=== PATIENT | female | born 1985 | race Caucasian/White ===

== ENCOUNTER 2019-02-03 19:33 | Emergency (ER) | payer OTHER ==
[2019-02-03 20:13] VITALS: RESP 18
[2019-02-03] MEDS ORDERED: diphenhydrAMINE 50 MG/ML 1 ML VIAL IVP STA (20:47)
[2019-02-03] MEDS ORDERED: DEXAMETHASONE SOD PHOSPHATE 10 MG/ML 1 ML VIAL IV STA (20:47)
[2019-02-03] MEDS ORDERED: SODIUM CHLORIDE 0.9% 1,000 ML IV STA (20:47)
[2019-02-03] MEDS ORDERED: ONDANSETRON 4 MG/2 ML VIAL IVP STA (20:47)
--- NOTE | 2019-02-03 20:53 | ED ---
General Adult HPI - General Source: patient Mode of arrival: ambulatory Limitations: no limitations <ArielaKathye D - Last Filed: 02/03/19 21:28> <David Flynnssica P - Last Filed: 02/03/19 23:11> - General Chief complaint: Headache Stated complaint: Post seizure headache Time Seen by Provider: 02/03/19 20:37 - History of Present Illness Initial comments: Dictation was produced using [employer] dictation software. please excuse any grammatical, word or spelling errors. Chief Complaint: 33-year-old female with past medical history migraines presents with worsening headache. History of Present Illness: She is a 33-year-old female presents with headache. Patient states that her symptoms began approximately 8-10 days ago. She was at her [facility] when she had episode of syncope. She does not call the event exactly however she was told she had a seizure. They called EMS for her however she refuses transfer to emergency department. 4 days later she went to her primary care physician and was ordered for EEG, MRI of the brain and neurology consultation. 3 or 4 days after that she felt like her pain was getting worse leading up to today where she felt like she had to come to the emergency department. Patient describes the pain as well cranial. She states that it feels like her head to about to pop. Denies any throbbing nature. States his headache is different from her usual migraine headaches. She states that it's worse when she lies flat and better when she sits up. He has any fever, chills or night sweats. Mother was at bedside reports that patient has had difficulty with cognition that is intermittent. She has a scheduled MRI and EEG in 2-3 days and a consultation appointment with Dr. Beatty later this week. Patient denies any neuro deficits. Denies any vision changes. She denies any chance of The ROS documented in this emergency department record has been reviewed and confirmed by me. Those systems with pertinent positive or negative responses have been documented in the HPI. All other systems are other negative and/or noncontributory. PHYSICAL EXAM: General Impression: Alert and oriented x3, acute distress secondary to pain HEENT: Normocephalic atraumatic, extra-ocular movements intact, pupils equal and reactive to light bilaterally, mucous membranes moist. Cardiovascular: Heart regular rate and rhythm, S1&S2 audible, no murmurs, rubs or gallops Chest: Lungs clear to auscultation bilaterally, no rhonchi, no wheeze, no rales Abdomen: Bowel sounds present, abdomen soft, non-tender, non-distended, no organomegaly Musculoskeletal: Pulses present and equal in all extremities, no peripheral edema Motor: no focal deficits noted Neurological: CN II-XII grossly intact, no focal motor or sensory deficits noted, no clonus, no hyperreflexia Skin: Intact with no visualized rashes Psych: Normal affect and mood ED course: 33yo female presents with chief complaint of headache. Vital signs upon arrival are within acceptable limits. Patient is ill-appearing. No focal neurologic deficits noted on neurologic exam. Patient has had good follow-up. She denies thunderclap headache however she does reported severe and worse with lying flat and in the morning. there Some consideration that patient's headache secondary to intracranial mass hands ordered CT. High on patient's differential includes intracranial mass and complex migraine. Patient given headache cocktail. Patient care senna to Dr. Flynn for follow-up of labs, CT and further recommendations. (Nathan Titus) - Related Data Home Medications Medication Instructions Recorded Confirmed Ibuprofen [Motrin Ib] 200 - 800 mg PO Q8H PRN 02/03/19 02/03/19 Magnesium 200 mg PO DAILY 02/03/19 02/03/19 Allergies Allergy/AdvReac Type Severity Reaction Status Date / Time acetaminophen [From Fioricet] Allergy Unknown Verified 02/03/19 20:35 aspirin [From Fiorinal] Allergy Unknown Verified 02/03/19 20:35 butalbital [From Fiorinal] Allergy Unknown Verified 02/03/19 20:35 caffeine [From Fiorinal] Allergy Unknown Verified 02/03/19 20:35 clarithromycin [From Biaxin] Allergy Rash/Hives Verified 02/03/19 20:35 sumatriptan [From Imitrex] Allergy Anaphylaxis Verified 02/03/19 20:35 sumatriptan succinate Allergy Anaphylaxis Verified 02/03/19 20:35 [From Imitrex] Review of Systems ROS Other: All systems not noted in ROS Statement are negative. <Nathan Titus - Last Filed: 02/03/19 21:28> ROS Other: All systems not noted in ROS Statement are negative. <Gill Flynn P - Last Filed: 02/03/19 23:11> ROS Statement: Those systems with pertinent positive or pertinent negative responses have been documented in the HPI. Past Medical History Past Medical History: Seizure Disorder Additional Past Medical History / Comment(s): migraines History of Any Multi-Drug Resistant Organisms: None Reported Past Surgical History: Adenoidectomy, Tonsillectomy Additional Past Surgical History / Comment(s): D&C for miscarriage Past Psychological History: Anxiety Smoking Status: Current every day smoker Past Alcohol Use History: None Reported Past Drug Use History: None Reported <Nathan Titus D - Last Filed: 02/03/19 21:28> General Exam Limitations: no limitations <Nathan Titus - Last Filed: 02/03/19 21:28> Course Vital Signs 02/03/19 02/03/19 20:10 22:17 Temperature 98.3 F Pulse Rate 95 69 Respiratory 18 18 Rate Blood Pressure 126/91 129/89 O2 Sat by Pulse 98 100 Oximetry Medical Decision Making - Lab Data Lab Results 02/03/19 Range/Units 21:11 Urine HCG, Qual Not Detected (Not Detectd) Disposition <Nathan Titus D - Last Filed: 02/03/19 21:28> Is patient prescribed a controlled substance at d/c from ED?: No <Gill Flynn P - Last Filed: 02/03/19 23:11> Clinical Impression: Headache Disposition: HOME SELF-CARE Condition: Stable Instructions (If sedation given, give patient instructions): Acute Headache (ED) Referrals: Zak Feng DO [Primary Care Provider] - 1-2 days
--- NOTE | 2019-02-03 22:37 | CT ---
EXAM: CT Head Without Intravenous Contrast CLINICAL HISTORY: ITS.REASON CT Reason: Pain TECHNIQUE: Axial computed tomography images of the head/brain without intravenous contrast. CTDI is 49.1 mGy and DLP is 1105.4 mGy-cm. This CT exam was performed using one or more of the following dose reduction techniques: automated exposure control, adjustment of the mA and/or kV according to patient size, and/or use of iterative reconstruction technique. COMPARISON: No relevant prior studies available. FINDINGS: Brain: No definite intracranial hemorrhage. Right cerebellar hypodensities, presumably artifact. No acute cortical infarct. No mass effect or midline shift. Ventricles: Unremarkable. Bones/joints: No acute fracture. Soft tissues: Unremarkable. Sinuses: Unremarkable as visualized. Mastoid air cells: Unremarkable as visualized. IMPRESSION: No acute intracranial process.
[2019-02-03 23:37] VITALS: BP 119/81; PULSE 88; TEMP 98.2
== END 2019-02-03 23:36 | disposition home or self-care (01) ==
LOC: EC 19:33
DX: R51 Headache (principal); R55 Syncope and collapse; F17.200 Nicotine dependence, unspecified, uncomplicated; Z79.899 Other long term (current) drug therapy; Z88.6 Allergy status to analgesic agent; Z88.8 Allergy status to other drugs, medicaments and biological substances; Z88.1 Allergy status to other antibiotic agents; Z91.018 Allergy to other foods
CPT/HCPCS: 81025; 70450; 99284; 96374; 96375 ×2; 96361; J1200; J1100; J2405

== ENCOUNTER → 2019-02-04 | Outpatient (CLI) | payer OTHER ==
--- NOTE | 2019-02-04 13:25 | MR ---
EXAMINATION TYPE: MR brain wo/w con DATE OF EXAM: 02/04/2019 COMPARISON: CT brain from yesterday. HISTORY: Seizure TECHNIQUE: Multiplanar, multisequence images of the brain and brainstem is performed without and with IV contras t, utilizing 5 mL intravenous Gadavist . FINDINGS: Diffusion weighted images demonstrate no evidence of a recent infarct or other diffusion ab normality. There is no worrisome extra-axial fluid collection . The ventricular system and cisterna l spaces are normal in size and appearance. The brain volume is age appropriate. There are some scat tered foci T2 hyperintensity identified throughout the white matter bilaterally. Approximately 10-15 scattered lesions are seen, for reference 6-8 small lesions are noted axial image 17 in the bilateral frontal lobes. One of larger lesions is 4 mm subcortical focus posterior right frontal lobe axial im age 20. T2 coronal weighted images show hippocampal gyri to appear symmetric and felt within normal l imits. No suspicious edema or enhancement is noted. Midline structures demonstrate normal morphology. The craniocervical junction appears within normal limits. Post contrast images demonstrate no abnormal enhancement. The dural venous sinuses appear pa tent. The visualized sinuses are clear and the globes are intact. IMPRESSION: Mild nonspecific white matter changes of uncertain etiology otherwise unremarkable exam. No obvious finding seen to account for patient's symptoms of new onset seizures.
== END | disposition home or self-care (01) ==
LOC: RADMRIMAIN 12:09
PROVIDERS: ATTEND Family Medicine
DX: R90.89 Other abnormal findings on diagnostic imaging of central nervous system (principal); R56.9 Unspecified convulsions
CPT/HCPCS: 70553; A9585

== ENCOUNTER → 2019-02-05 | Outpatient (CLI) | payer OTHER ==
--- NOTE | 2019-02-09 09:20 | EEG ---
ELECTROENCEPHALOGRAM REPORT DATE OF PROCEDURE: 02/05/2019 ELECTROENCEPHALOGRAM (EEG) REPORT: TECHNIQUE: A routine 18 channel EEG was performed with video using the 10/20 international placement system. HISTORY: Seizure 3 weeks ago. Patient was sitting in a chair at a salon when shoulder started shaking and head fell forward. CURRENT MEDICATIONS: Magnesium. STUDY DURATION: 27 minutes. FINDINGS: BACKGROUND: The background activity consisted of 9-10 hertz rhythmic waveforms symmetrically seen over both posterior quadrants. ACTIVATION: HYPERVENTILATION: Induced physiological slowing. PHOTIC STIMULATION: Symmetric driving seen. SLEEP: Stages 1 and 2 sleep noted. ABNORMALITIES: On one occasion during this recording, a generalized spike discharge was seen. This was not definitively epileptiform in nature. Noting that this was a single discharge. IMPRESSION: Potentially abnormal EEG. No clinical or electrographic seizures were recorded. On 1 single occasion, generalized spike morphology discharge was seen, a definitive conclusion regarding the etiology of this cannot be determined as it only occurred once during the recording. If clinical concern remains for a seizure disorder, would suggest a repeat study. Please note that 1 channel of this EEG was dedicated to EKG. It demonstrated a sinus rhythm. Stages 1 and 2 sleep were recorded. MMODL / IJN: [id number] /
== END | disposition home or self-care (01) ==
LOC: NEUROMAIN 09:53
PROVIDERS: ATTEND Family Medicine
DX: R94.01 Abnormal electroencephalogram [EEG] (principal); R56.9 Unspecified convulsions
CPT/HCPCS: 95816

== ENCOUNTER → 2019-02-16 | Outpatient (CLI) | payer OTHER | END | disposition home or self-care (01) | LOC: LABWHC1 13:14 | PROVIDERS: ATTEND Psychiatry & Neurology Neurology | DX: Z53.9 Procedure and treatment not carried out, unspecified reason (principal) ==

== ENCOUNTER → 2019-09-09 | Outpatient (CLI) | payer OTHER ==
[2019-09-09 10:08] LABS: HCT 39.4 % (34.0-46.0); HGB 12.9 gm/dL (11.4-16.0); MCH 30.2 pg (25.0-35.0); MCHC 32.8 g/dL (31.0-37.0); MCV 92.1 fL (80.0-100.0); Mean Platelet Volume 6.5; Platelet Count 272 k/uL (150-450); RBC 4.28 m/uL (3.80-5.40); RDW 13.2 % (11.5-15.5); WBC 9.6 k/uL (3.8-10.6)
[2019-09-09 17:07] LABS: Hepatitis B Surface Antigen Non-Reactive (Non-Reactive)
== END | disposition home or self-care (01) ==
LOC: LABWHC1 09:40
PROVIDERS: ATTEND Nurse Practitioner Family
DX: Z34.80 Encounter for supervision of other normal pregnancy, unspecified trimester (principal); Z51.81 Encounter for therapeutic drug level monitoring
CPT/HCPCS: 36415; 80177; 82565; 82947; 85027; 86762; 86780; 86850; 86900; 86901; 87340

== ENCOUNTER → 2019-09-15 | Outpatient (CLI) | payer OTHER ==
--- NOTE | 2019-09-15 15:54 | US ---
EXAMINATION TYPE: Transabdominal DATE OF EXAM: 09/15/2019 9:17 AM COMPARISON: NONE CLINICAL HISTORY: Z36 Confirm Dates. Confirm dates. Unknown LMP EXAM PERFORMED: Transabdominal (TA) EXAM MEASUREMENTS: GESTATIONAL AGE / DATING Dates by LMP: LMP unknown Dates by Current Scan for: ( 9 weeks/5 days) EDC: 04/14/2020 MATERNAL ANATOMY Uterus: 11.7 x 7.3 x 5.6 cm Right Ovary: 2.8 x 2.0 x 1.8 cm Left Ovary: 2.5 x 1.4 x 1.7 cm Post CDS / Adnexa: no free fluid Presence of free fluid: no Presence of corpus luteal cyst: no Presence of subchorionic bleed: anechoic lesion adjacent to GS in VETO = 2.6 x 2.7 x 0.5 cm GESTATION / SURVEY CRL: 2.9 cm (9 weeks/5 days) MSD: seen, not measured Yolk Sac (normal less than 6mm): 4.0 mm Heart Rate: 169 bpm Rhythm: Normal IUP: Viable IUP Date of LMP: Unknown, Beta HcG (if available): Not available at this time Single live IUP measuring 9 weeks 5 days IMPRESSION: 1. Single intrauterine gestation estimated at 9 weeks 5 days gestation based on the crown-rump length . Cardiac activity measures 169 bpm. 2. Subchorionic hemorrhage measuring 2.6 x 2.7 x 0.5 cm.
== END | disposition home or self-care (01) ==
LOC: RADUSWWP 08:48
PROVIDERS: ATTEND Obstetrics & Gynecology
DX: O20.8 Other hemorrhage in early pregnancy (principal); Z3A.09 9 weeks gestation of pregnancy
CPT/HCPCS: 76801

== ENCOUNTER → 2020-01-14 | Outpatient (CLI) | payer OTHER ==
[2020-01-14 11:15] LABS: HCT 33.7 % (34.0-46.0); MCH 29.8 pg (25.0-35.0); MCHC 32.7 g/dL (31.0-37.0); MCV 91.1 fL (80.0-100.0); Mean Platelet Volume 7.2; Platelet Count 245 k/uL (150-450); RBC 3.71 m/uL (3.80-5.40); RDW 13.2 % (11.5-15.5); WBC 11.4 k/uL (3.8-10.6)
== END | disposition home or self-care (01) ==
LOC: LABWHC1 09:29
PROVIDERS: ATTEND Obstetrics & Gynecology
DX: Z34.82 Encounter for supervision of other normal pregnancy, second trimester (principal); Z3A.00 Weeks of gestation of pregnancy not specified
CPT/HCPCS: 36415; 82950; 85027

== ENCOUNTER 2020-03-27 06:00 | Inpatient (IN) | payer OTHER ==
[2020-03-24 12:57] VITALS: BMI 29.2
[2020-03-27] MEDS ORDERED: LACTATED RINGERS 1,000 ML IV ONE (06:53)
[2020-03-27] MEDS ORDERED: CITRIC ACID-SODIUM CITRATE 15 ML CUP PO ONE (06:53)
[2020-03-27 07:07] LABS: Basophils % (A) 1 %; Eosinophils % (A) 0 %; HCT 32.2 % (34.0-46.0); HGB 10.2 gm/dL (11.4-16.0); Hypochromasia Moderate; Lymphocytes % (A) 23 %; MCH 25.7 pg (25.0-35.0); MCHC 31.5 g/dL (31.0-37.0); MCV 81.6 fL (80.0-100.0); Mean Platelet Volume 8.2; Monocytes # (A) 0.4 k/uL (0-1.0); Monocytes % (A) 5 %; Neutrophils % (A) 68 %; Platelet Count 234 k/uL (150-450); Poikilocytosis Slight; RBC 3.95 m/uL (3.80-5.40); RDW 14.4 % (11.5-15.5); WBC 8.8 k/uL (3.8-10.6)
[2020-03-27] MEDS ORDERED: KETOROLAC 30 MG/ML 1 ML VIAL ONE (08:04)
[2020-03-27] MEDS ORDERED: OXYTOCIN 10 UNIT/ML 1 ML VIAL ONE (08:04)
[2020-03-27] MEDS ORDERED: fentaNYL (PF) 50 MCG/ML 2 ML AMP ONE (08:04)
[2020-03-27] MEDS ORDERED: NALBUPHINE 10 MG/ML (1 ML AMP) ONE (08:04)
[2020-03-27] MEDS ORDERED: ONDANSETRON 4 MG/2 ML VIAL ONE (08:04)
[2020-03-27] MEDS ORDERED: MORPHINE SULFATE (PF) 0.3 MG/0.3 ML SYR ONE (08:04)
[2020-03-27] MEDS ORDERED: SIMETHICONE 80 MG CHEWABLE PO PRN (08:49)
[2020-03-27] MEDS ORDERED: diphenhydrAMINE 50 MG/ML 1 ML VIAL IVP PRN (08:49)
[2020-03-27] MEDS ORDERED: ONDANSETRON 4 MG/2 ML VIAL IVP PRN (08:49)
[2020-03-27] MEDS ORDERED: ZOLPIDEM 5 MG TAB PO PRN (08:49)
[2020-03-27] MEDS ORDERED: diphenhydrAMINE 50 MG CAP PO PRN (08:49)
[2020-03-27] MEDS ORDERED: NALOXONE 0.4 MG/ML 1 ML VIAL IV PRN (08:49)
[2020-03-27] MEDS ORDERED: ACETAMINOPHEN TAB 325 MG TAB PO PRN (08:49)
[2020-03-27] MEDS ORDERED: LANOLIN CREAM 5 GM TUBE TOPICAL PRN (08:49)
[2020-03-27] MEDS ORDERED: METOCLOPRAMIDE 5 MG/ML 2 ML VIAL IVP PRN (08:49)
[2020-03-27] MEDS ORDERED: diphenhydrAMINE 25 MG CAP PO PRN (08:49)
[2020-03-27] MEDS ORDERED: OXYTOCIN 20 UNITS/1000 ML NS 1,000 ML IV SCH (09:00)
[2020-03-27] MEDS: LACTATED RINGERS 1,000 ML IV SCH ×5 (12:10→19:34)
[2020-03-27] MEDS: KETOROLAC 30 MG/ML 1 ML VIAL IVP SCH ×3 (12:14→22:58)
[2020-03-27] MEDS ORDERED: MEASLES-MUMPS-RUBELLA VACC/PF 12,500 UNIT/0.5 ML VIAL SQ ONE (12:23)
--- NOTE | 2020-03-27 12:57 | P.HPOB ---
History of Present Illness H&P Date: 03/27/20 Chief Complaint: repeat with tubal ligation 34 year old presents at 37 weeks 3 days for repeat low transverse with tubal ligation. 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 Review of Systems All systems: negative Constitutional: Denies chills, Denies fever Eyes: denies blurred vision, denies pain Ears, nose, mouth and throat: Denies headache, Denies sore throat Cardiovascular: Denies chest pain, Denies shortness of breath Respiratory: Denies cough Gastrointestinal: Denies abdominal pain, Denies diarrhea, Denies nausea, Denies vomiting Genitourinary: Denies dysuria, Denies hematuria Musculoskeletal: Denies myalgias Integumentary: Denies pruritus, Denies rash Neurological: Denies numbness, Denies weakness Psychiatric: Denies anxiety, Denies depression Endocrine: Denies fatigue, Denies weight change Past Medical History Past Medical History: Neurologic Disorder, Seizure Disorder Additional Past Medical History / Comment(s): migraines. LAST SEIZURE 07/20. 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 Obstetric history: She has had 2 previous vaginal deliveries, 32 weeks and 39 weeks, emergency for transverse position of a 27 week or when she went into labor. This is her fourth . She's been seeing me for care since the first trimester and comanage by maternal medicine. 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 Blood type is O+, infant appears negative, rubella indeterminate, hepatitis B negative. History of Any Multi-Drug Resistant Organisms: None Reported Past Surgical History: Adenoidectomy, Section, Tonsillectomy Additional Past Surgical History / Comment(s): D&C for miscarriage Past Anesthesia/Blood Transfusion Reactions: No Reported Reaction Past Psychological History: Anxiety Smoking Status: Former smoker Past Alcohol Use History: None Reported Additional Past Alcohol Use History / Comment(s): QUIT SMOKING 06/2019 Past Drug Use History: None Reported - Past Family History Mother Family Medical History: No Reported History Medications and Allergies Home Medications Medication Instructions Recorded Confirmed Type Pnv No.95/Ferrous Fum/Folic AC 1 each PO DAILY 05/01/20 05/01/20 History [ Multivitamin Tablet] Allergies Allergy/AdvReac Type Severity Reaction Status Date / Time acetaminophen [From Fioricet] Allergy Rash/Hives Verified 03/24/20 12:42 aspirin [From Fiorinal] Allergy Rash/Hives Verified 03/24/20 12:42 butalbital [From Fiorinal] Allergy Rash/Hives Verified 03/24/20 12:42 caffeine [From Fiorinal] Allergy Rash/Hives Verified 03/24/20 12:42 clarithromycin [From Biaxin] Allergy Rash/Hives Verified 02/03/19 20:35 sumatriptan [From Imitrex] Allergy Anaphylaxis Verified 02/03/19 20:35 sumatriptan succinate Allergy Anaphylaxis Verified 02/03/19 20:35 [From Imitrex] Exam Osteopathic Statement: *. No significant issues noted on an osteopathic structural exam other than those noted in the History and Physical/Consult. Vital Signs Temp Pulse Resp BP Pulse Ox 03/27/20 11:24 71 17 129/74 98 03/27/20 10:56 96.7 F L 67 18 107/60 98 03/27/20 10:21 97 17 121/71 97 03/27/20 09:56 96.4 F L 75 18 113/62 98 03/27/20 09:41 72 17 116/76 97 03/27/20 09:26 76 17 112/71 97 03/27/20 09:11 74 18 107/56 03/27/20 08:56 96.4 F L 75 18 95/54 97 03/27/20 06:56 97.0 F L 96 18 127/81 98 Intake and Output 03/26/20 03/27/20 03/27/20 22:59 06:59 14:59 Output Total 50 Balance -50 Output: Urine 50 Other: Voiding Method Indwelling Catheter Weight 74.843 kg Heart: Regular rate and rhythm Lungs: Clear to auscultation bilaterally Abdomen: Soft, nontender Extremities: Negative Homans sign Results Result Diagrams: 03/27/20 06:30 Abnormal Lab Results - Last 24 Hours (Table) 03/27/20 Range/Units 06:30 Hgb 10.2 L (11.4-16.0) gm/dL Hct 32.2 L (34.0-46.0) % Assessment and Plan (1) Varices of umbilical cord Current Visit: Yes Status: Acute Code(s): XLK1287 - SNOMED Code(s): 083597895 (2) Previous section Current Visit: Yes Status: Acute Code(s): Z98.891 - HISTORY OF UTERINE SCAR FROM PREVIOUS SURGERY SNOMED Code(s): 572868777 (3) Family planning Current Visit: Yes Status: Acute Code(s): Z30.09 - ENCOUNTER FOR OT GENERAL CNSL AND ADVICE ON CONTRACEPTION SNOMED Code(s): 309931927 Plan: 1. Repeat low transverse with tubal ligation
--- NOTE | 2020-03-27 13:02 | P.OP ---
Date of Procedure: 03/27/20 Preoperative Diagnosis: 1. Umbilical cord varix 2. Previous section 3. Family planning Postoperative Diagnosis: 1. Umbilical cord varix 2. Previous section 3. Family planning Procedure(s) Performed: Repeat low transverse with tubal ligation Anesthesia: spinal Surgeon: Katie Henao Scallop Shucker #1: Ashley Graham Estimated Blood Loss (ml): 408 IV fluids (ml): 750 Urine output (ml): 200 Pathology: other (Placenta, bilateral fallopian tubal segments) Condition: stable Disposition: floor Operative Findings: Normal uterus, tubes, ovaries. Viable female Apgars 9, 9, weight 6 lbs. 14 oz. Description of Procedure: Patient was taken to the operating room where spinal anesthesia was found be adequate. She was prepped and draped in normal sterile fashion in dorsal supine position with a leftward tilt. Pfannenstiel skin incision was made the scalpel and carried through to the underlying layer of fascia with the scalpel. Fascia was incised in midline and carried bilaterally with the Cummings scissors. The superior aspect of the fascial incision was grasped with Luverne clamps elevated and the underlying rectus muscles dissected off with the Cummings's. Attention was then turned to inferior aspect of same incision which in a similar fashion was grasped tented up and the underlying rectus muscles dissected off with the Cummings's. The rectus muscles were the midline and the peritoneum was identified tented up and entered sharply with the scalpel. The incision was extended superiorly and inferiorly with good visualization of the bladder. The bladder blade was inserted and the vesicouterine peritoneum was incised the Metzenbaums then carried bilaterally and bladder flap created digitally. A low transverse incision was then made on the uterus with the scalpel. This was carried bilaterally and digital manner. Infant's head delivered atraumatically, nose and mouth bulb suctioned, cord clamped and cut, infant handed off to [facility] nurses. Apgars 9,9, weight 6 lbs. 14 oz. cord blood collection was done following the instructions I came with the kit. Placenta delivered manually, intact with three-vessel cord. The uterus is exteriorized and cleared of all clots and debris. The uterine incision was closed with 0 Vicryl in a running locked fashion. Second layer of the same sutures used in imbricating fashion to obtain excellent hemostasis. Bladder flap was then reapproximated using 2-0 Vicryl in a running fashion. Both ovaries and tubes appeared normal. The left fallopian tube was grasped with a hemostat and a window was made in the mesosalpinx with the Bovie. The left fallopian tube was doubly ligated and a segment was removed. The pedicles were cauterized with the Bovie. The right fallopian tube was grasped with a hemostat and a window was made in the mesosalpinx with the Bovie. The right fallopian tube was doubly ligated and a segment was removed. The pedicles were cauterized with the Bovie. The uterus was placed back into the abdomen. The peritoneum was reapproximated using 2-0 Vicryl in a running fashion. The muscles were reapproximated using 2-0 Vicryl in interrupted fashion. The fascia was reapproximated using 0 Vicryl in a running fashion. The subcutaneous tissues closed with 3-0 Vicryl running fashion. The skin was closed oniel. Patient tolerated the procedure well, sponge and instrument counts were correct times 2 and she was taken to the recovery room in stable condition.
[2020-03-27] MEDS: diphenhydrAMINE 50 MG/ML 1 ML VIAL IVP PRN ×2 (14:40→22:57)
[2020-03-27] MEDS: SENNOSIDES-DOCUSATE SODIUM 1 EACH TAB PO SCH (19:34)
[2020-03-28 05:26] LABS: Basophils % (A) 0 %; Eosinophils % (A) 0 %; HCT 27.8 % (34.0-46.0); HGB 8.8 gm/dL (11.4-16.0); Hypochromasia Marked; Lymphocytes # (A) 2.4 k/uL (1.0-4.8); Lymphocytes % (A) 22 %; MCH 26.6 pg (25.0-35.0); MCHC 31.7 g/dL (31.0-37.0); MCV 83.9 fL (80.0-100.0); Mean Platelet Volume 8.2; Monocytes # (A) 0.6 k/uL (0-1.0); Monocytes % (A) 5 %; Neutrophils # (A) 7.7 k/uL (1.3-7.7); Neutrophils % (A) 70 %; Platelet Count 193 k/uL (150-450); Poikilocytosis Slight; RBC 3.31 m/uL (3.80-5.40); RDW 14.1 % (11.5-15.5)
[2020-03-28] MEDS: KETOROLAC 30 MG/ML 1 ML VIAL IVP SCH ×2 (05:34→20:40)
--- NOTE | 2020-03-28 07:26 | P.PNOBGPC ---
Subjective - Subjective Principal diagnosis: S/P RLTCS with TL POD #1 Interval history: Patient seen and examined. Denies nausea, vomiting, chest pain, shortness of breath or calf pain. Patient reports: Reports appetite normal, Reports voiding normally, Reports pain well controlled, Reports ambulating normally : doing well Objective - Vital Signs Latest vital signs: Vital Signs Temp Pulse Resp BP Pulse Ox 03/28/20 03:21 98.3 F 92 18 124/76 96 03/27/20 23:11 98 F 86 18 110/72 98 03/27/20 20:00 98.5 F 85 18 109/67 98 03/27/20 16:00 98.1 F 83 18 124/70 97 03/27/20 11:24 71 17 129/74 98 03/27/20 10:56 96.7 F L 67 18 107/60 98 03/27/20 10:21 97 17 121/71 97 03/27/20 09:56 96.4 F L 75 18 113/62 98 03/27/20 09:41 72 17 116/76 97 03/27/20 09:26 76 17 112/71 97 03/27/20 09:11 74 18 107/56 03/27/20 08:56 96.4 F L 75 18 95/54 97 Intake and Output 03/27/20 03/28/20 03/28/20 22:59 06:59 14:59 Output Total 600 Balance -600 Output: Urine 600 Uretheral (Zavala) 300 Other: Voiding Method Indwelling Catheter # Voids 1 2 - Exam Lungs: bilateral: normal Chest: Normal S1, Normal S2 Extremities: Present: normal Abdomen: Present: normal appearance, soft. Absent: distention, tenderness Incision: Present: normal, dry, intact Uterus: Present: normal, firm - Labs Labs: Abnormal Lab Results - Last 24 Hours (Table) 03/28/20 Range/Units 05:07 WBC 11.0 H (3.8-10.6) k/uL RBC 3.31 L (3.80-5.40) m/uL Hgb 8.8 L (11.4-16.0) gm/dL Hct 27.8 L (34.0-46.0) % Assessment and Plan (1) Varices of umbilical cord Current Visit: Yes Status: Resolved Code(s): [id number] - SNOMED Code(s): 303595197 (2) Previous section Current Visit: Yes Status: Resolved Code(s): Z98.891 - HISTORY OF UTERINE SCAR FROM PREVIOUS SURGERY SNOMED Code(s): 432396841 (3) Family planning Current Visit: Yes Status: Resolved Code(s): Z30.09 - ENCOUNTER FOR OT GENERAL CNSL AND ADVICE ON CONTRACEPTION SNOMED Code(s): 695499297 (4) Status post repeat low transverse section Current Visit: Yes Status: Acute Code(s): Z98.891 - HISTORY OF UTERINE SCAR FROM PREVIOUS SURGERY SNOMED Code(s): 494255892 (5) Status post tubal ligation at time of delivery, current hosp Current Visit: Yes Status: Acute Code(s): O80 - ENCOUNTER FOR FULL-TERM UNCOMPLICATED DELIVERY; Z30.2 - ENCOUNTER FOR STERILIZATION SNOMED Code(s): 135798627 Plan: 1. increase ambulation 2. advance diet
[2020-03-28] MEDS: SENNOSIDES-DOCUSATE SODIUM 1 EACH TAB PO SCH ×2 (08:12→20:39)
[2020-03-28] MEDS: IBUPROFEN 600 MG TAB PO PRN ×2 (12:40→19:20)
[2020-03-28 16:04] VITALS: RESP 16
--- NOTE | 2020-03-28 17:16 | P.PN ---
Progress Note - Text Progress Note Date: 03/28/20 Postoperative day 1 status post section under spinal anesthesia, and i ntrathecal morphine given for postoperative analgesia, patient doing well, there is no anesthesia related complications, Patient had no headache, vital signs stable , Assessment and plan= postop day 1 status post , doing well there is no anesthesia related complication.
[2020-03-28] MEDS: HYDROcodone/APAP 7.5-325MG 1 EACH TAB PO PRN (22:43)
[2020-03-29] MEDS: IBUPROFEN 600 MG TAB PO PRN ×2 (01:31→07:37)
[2020-03-29] MEDS: HYDROcodone/APAP 7.5-325MG 1 EACH TAB PO PRN ×2 (04:43→10:12)
--- NOTE | 2020-03-29 07:05 | P.DS ---
Providers Date of admission: 03/27/20 06:00 Expected date of discharge: 03/29/20 Attending physician: Katie Henao Primary care physician: Stated None - Discharge Diagnosis(es) (1) Varices of umbilical cord Current Visit: Yes Status: Resolved (2) Previous section Current Visit: Yes Status: Resolved (3) Family planning Current Visit: Yes Status: Resolved (4) Status post repeat low transverse section Current Visit: Yes Status: Acute (5) Status post tubal ligation at time of delivery, current hosp Current Visit: Yes Status: Acute Hospital Course: Patient presented for repeat low transverse and tubal ligation. She underwent this procedure without complication. course was uncomplicated. Her pain is well-controlled with Motrin and Ladora. She'll be discharged home post operative day #2 in stable condition to follow-up with me in one week. Plan - Discharge Summary Discharge Rx Participant: Yes New Discharge Prescriptions: New Ibuprofen [Motrin] 600 mg PO Q6HR PRN #30 tab PRN Reason: Mild Pain Or Fever >= 100.5 HYDROcodone/APAP 7.5-325MG [Ladora 7.5-325] 1 each PO Q6H PRN #12 tab PRN Reason: Severe Pain No Action Pnv No.95/Ferrous Fum/Folic AC [ Multivitamin Tablet] 1 each PO DAILY Discharge Medication List Pnv No.95/Ferrous Fum/Folic AC [ Multivitamin Tablet] 1 each PO DAILY 03/24/20 [History] HYDROcodone/APAP 7.5-325MG [Ladora 7.5-325] 1 each PO Q6H PRN #12 tab 03/29/20 [Rx] Ibuprofen [Motrin] 600 mg PO Q6HR PRN #30 tab 03/29/20 [Rx] Follow up Appointment(s)/Referral(s): Katie Henao DO [Doctor of Osteopathic Medicine] - 1 Week Discharge Disposition: HOME SELF-CARE
[2020-03-29 08:48] VITALS: BP 122/73; PULSE 81; TEMP 98.9
[2020-03-29] MEDS: SENNOSIDES-DOCUSATE SODIUM 1 EACH TAB PO SCH (08:48)
== END 2020-03-29 11:30 | disposition home or self-care (01) | DRG 785 ==
LOC: 4FBP 06:00
PROVIDERS: ADMIT Obstetrics & Gynecology; ATTEND Obstetrics & Gynecology
PROC: 3E0134Z Introduction of Serum, Toxoid and Vaccine into Subcutaneous Tissue, Percutaneous Approach (ICD-10-PCS; principal; 2020-03-27 08:00)
PROC: 10D00Z1 Extraction of Products of Conception, Low, Open Approach (ICD-10-PCS; principal; 2020-03-27 08:00)
PROC: 0UB70ZZ Excision of Bilateral Fallopian Tubes, Open Approach (ICD-10-PCS; principal; 2020-03-27 08:00)
DX: O34.211 Maternal care for low transverse scar from previous cesarean delivery (principal); O69.5XX0 Labor and delivery complicated by vascular lesion of cord, not applicable or unspecified; K21.9 Gastro-esophageal reflux disease without esophagitis; O99.62 Diseases of the digestive system complicating childbirth; O99.52 Diseases of the respiratory system complicating childbirth; J45.990 Exercise induced bronchospasm; N85.8 Other specified noninflammatory disorders of uterus; Z37.0 Single live birth; Z30.2 Encounter for sterilization; Z23 Encounter for immunization; Z3A.37 37 weeks gestation of pregnancy; Z79.899 Other long term (current) drug therapy; Z87.891 Personal history of nicotine dependence; Z86.59 Personal history of other mental and behavioral disorders; Z98.890 Other specified postprocedural states; Z86.69 Personal history of other diseases of the nervous system and sense organs; Z88.6 Allergy status to analgesic agent; Z88.1 Allergy status to other antibiotic agents; Z88.8 Allergy status to other drugs, medicaments and biological substances
CPT/HCPCS: 85025; 86850; 86900; 86901; 88302; 88307; 90471; 90707

== ENCOUNTER 2022-03-12 12:56 | Day surgery (SDC) | payer OTHER ==
[2022-03-08 14:19] VITALS: BMI 20.3
[~2022-03-12 12:56] MED LIST: LACTATED RINGERS 1,000 ML IV SCH; LIDOCAINE 1% (10MG/ML) FOR IV START INTRADERMA PRN
[2022-03-12 13:11] VITALS: TEMP 96.8
[2022-03-12] MEDS ORDERED: LIDOCAINE 1% INJ 10MG/ML (20 ML MDV) ONE (13:38)
[2022-03-12] MEDS ORDERED: PROPOFOL 10 MG/ML 20 ML VIAL IV ONE (13:38)
--- NOTE | 2022-03-12 13:51 | P.OP ---
Date of Procedure: 03/12/22 Preoperative Diagnosis: Abdominal pain GERD Postoperative Diagnosis: Gastritis and Duodenitis Procedure(s) Performed: EGD with biopsy Anesthesia: RISHI Surgeon: Ry Griffiths Estimated Blood Loss (ml): 0 Condition: stable Disposition: PACU
[2022-03-12 14:05] VITALS: BP 145/85; PULSE 82; RESP 16
--- NOTE | 2022-03-18 11:25 | P.HPIHPCON ---
History of Present Illness H&P Date: 03/12/22 Chief Complaint: GERD Patient has history of GERD, see office H and P for further details Consent for Procedure: I have explained the operation/procedure to the patient, including the risks, benefits, side effects, alternative therapies (including not receiving the proposed treatment or service), the likelihood of the patient achieving his/her goals, and potential recuperation problems for the procedure/sedation/analgesia, as well as any blood products, if indicated. I also explained to the patient the risks, benefits and side effects of the alternatives, as well as the risks related to not receiving the proposed procedure, care, treatment, or services. Past Medical History Past Medical History: Asthma, Neurologic Disorder, Seizure Disorder Additional Past Medical History / Comment(s): upper abdominal pain and pressure,hx migraines. LAST SEIZURE 07/20/2019. 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 Obstetric history: She has had 2 previous vaginal deliveries, 32 weeks and 39 weeks, emergency for transverse position of a 27 week or when she went into labor. This is her fourth . She's been seeing me for care since the first trimester and comanage by maternal medicine. 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 Blood type is O+, appears negative, rubella indeterminate, hepatitis B negative. History of Any Multi-Drug Resistant Organisms: None Reported Past Surgical History: Adenoidectomy, Section, Tonsillectomy, Tubal Ligation Additional Past Surgical History / Comment(s): D&C for miscarriage,c sections x2 Past Anesthesia/Blood Transfusion Reactions: No Reported Reaction Smoking Status: Current every day smoker - Past Family History Mother Family Medical History: No Reported History Medications and Allergies Home Medications Medication Instructions Recorded Confirmed Type Multivitamins, Thera [Multivitamin 1 tab PO DAILY 03/08/22 03/08/22 History (formulary)] Omeprazole 40 mg PO DAILY #30 cap 03/12/22 Rx Allergies Allergy/AdvReac Type Severity Reaction Status Date / Time clarithromycin [From Biaxin] Allergy Unknown Verified 03/12/22 13:07 Childhood sumatriptan [From Imitrex] Allergy increased Verified 03/12/22 13:07 b/p sumatriptan succinate Allergy increased Verified 03/12/22 13:07 [From Imitrex] b/p butalbital [From Fiorinal] AdvReac head ache Verified 03/12/22 13:07 Surgical - Exam Osteopathic Statement: *. No significant issues noted on an osteopathic structural exam other than those noted in the History and Physical/Consult. Vital Signs Temp Pulse Resp BP Pulse Ox 96.8 F L 101 H 16 123/82 96 03/12/22 13:10 03/12/22 13:10 03/12/22 13:10 03/12/22 13:10 03/12/22 13:10 - General well developed, well nourished, no distress - Neck no masses, trachea midline - Respiratory normal expansion, normal respiratory effort - Cardiovascular Rhythm: regular - Abdomen Abdomen: soft, non tender Assessment and Plan Assessment: GERD Plan: EGD discussed with patient
== END 2022-03-12 14:30 | disposition home or self-care (01) ==
LOC: ORWHC2ENDO 12:56
PROVIDERS: ATTEND Student in an Organized Health Care Education/Training Program
DX: K29.80 Duodenitis without bleeding (principal); K29.70 Gastritis, unspecified, without bleeding; K21.9 Gastro-esophageal reflux disease without esophagitis; F17.200 Nicotine dependence, unspecified, uncomplicated
CPT/HCPCS: 43239; 81025; 88305; J2001; J2704